=== PATIENT | male | born 1985 | race Caucasian/White ===

== ENCOUNTER 2016-11-01 21:02 | Emergency (ER) | payer OTHER ==
--- NOTE | 2016-11-01 22:41 | ED NURSING NOTES ---
Clinical Report - Nurses [facility] [place] [address] 11/01/2016 21:02 Patient: BELGICA PORTILLO TRIAGE Triage time 21:18. Acuity: LEVEL 4. Chief Complaint: INJURY TO RIGHT FOOT. 21:24. Alert. SEPSIS SCREEN: Sepsis Screen. Negative (no infection suspected/documented). GAIL COMA SCORE: [place] Coma Scale: 15- eyes open spontaneously (4); best verbal response- oriented x 4 (5); best motor response- obeys commands (6). --21:24 Richard Alvarez R.N. 21:18 11/01/16. BP: 123/74. HR: 60. RR: 15. O2 saturation: 100%. Temp: 98.2 F (oral). Pain level now: 04/21. --21:24 Richard Alvarez R.N. Weight: 61.2 kg stated. Height/Length: 68 inches Per Patient. BMI: 20.5. --21:22 Richard Alvarez R.N. Medications Marnail for chronic nausea as needed. --21:24 Richard Alvarez R.N. The following entry was struck by Richard Alvarez R.N., 21:24 (11/01/16) Reason - other. <<STRICKEN ENTRY-- None. --21:20 Richard Alvarez R.N. --END STRIKE>>. Medication/allergy information source: the patient. --21:24 Richard Alvarez R.N. Allergies Morphine and Related. Penicillins. --21:21 Richard Alvarez R.N. History Arrived by private vehicle. Historian: patient. Accompanied by family. Primary physician (Graeme). This occurred (45 minutes ago). Occurred at home. Mechanism of injury: (Kicked a cabinet). ( Patient reports cooking in kitchen and accidently kicked a cabinet corner). Treatment CITY EDITOR: None. PAST MEDICAL HX: Tetanus status: more than 5 years ago. Immunizations: up-to-date. SOCIAL HX: Former smoker, end date 2013. Never smoker. History of weekly drug use: marijuana. No alcohol use. No infectious disease exposure. ABUSE ASSESSMENT: No report of abuse. FALL RISK ASSESSMENT: Fall risk assessment completed. No fall risk identified. NUTRITIONAL RISK ASSESSMENT: The nutritional risk assessment revealed no deficiencies. FUNCTIONAL ASSESSMENT: Functional assessment: no impairments noted. LEARNING NEEDS ASSESSMENT: The learning needs assessment revealed no barriers. SKIN INTEGRITY ASSESSMENT: Skin integrity risk assessment completed. No skin integrity risk identified. --21:24 Richard Alvarez R.N. PROBLEMS: Seizure Disorder. Irritable Bowel Syndrome. --21:22 Richard Alvarez R.N. ADDITIONAL SURGERIES: R tibial repair dislocated L hip during [facility]. --21:22 Richard Alvarez R.N. Interventions ID band on patient. To treatment room. --21:24 Richard Alvarez R.N. PHYSICAL ASSESSMENT 21:25. To room via wheelchair. GENERAL / NEURO / PSYCH: Oriented X 4. Alert. EXTREMITIES: Neuro-vascular status intact to the extremity. Right dorsal foot: swelling and superficial 1.0 cm laceration with controlled bleeding. SKIN: Skin intact. Skin is warm and dry. --21:25 Richard Alvarez R.N. NURSING PROGRESS NOTES 21:26. Two patient identifiers checked. Call light placed in reach. Bed placed in lowest position. Brakes of bed on. Patient ready for evaluation- chart flagged. --21:26 Richard Alvarez R.N. 21:42 11/01/2016 Toradol (Ketorolac Tromethamine) IM 60 mg given. Given in the right ventral gluteus. Allergies verified and confirmed 5 rights. --21:45 Richard Alvarez R.N. 21:44 11/01/2016 TDAP IM 0.5 mL given. (Lot#: [id number], expiration date: 06/19/2018, Grounds Maintenance Worker: sanofi pasteur). Given in the right deltoid. Allergies verified and confirmed 5 rights. Vaccine information statement provided to the patient. --21:46 Richard Alvarez R.N. 21:46. Patient transported to radiology by wheelchair with tech. --21:46 Richard Alvarez R.N. 21:52. Patient returned from radiology by wheelchair with tech. --21:54 Richard Alvarez R.N. Wound cleansed with sterile water. Applied sterile pressure dressing consisting of Band-Aid, following the application of antibiotic ointment. Secured with kerlix. --22:54 Darrick Rodney R.N. Reassurance given. Call light placed in reach. --22:55 Darrick Rodney R.N. 22:54 11/01/16. BP: 115/77. HR: 61. RR: 16. O2 saturation: 100%. Temp: 98.2 F. Pain level now: 0/10. --22:55 Darrick Rodney R.N. DISPOSITION / DISCHARGE Condition at departure: improved. The goals identified in the patient's plan of care were met. No learning barriers present. Reviewed medication(s) side effects, precautions, dosing and course information. Prescription(s) given to the patient. Reviewed wound care instructions. Patient verbalized understanding. Written instructions provided in Danish. The patient was discharged home and accompanied by spouse. He left the Emergency Department ambulatory and via private vehicle. Spouse driving. FALL RISK ASSESSMENT: Fall risk assessment completed. No fall risk identified. --:56 Darrick Rodney R.N. Departure time: 2256 PM. --22:56 Darrick Rodney R.N. Locked/Released at 11/02/2016 23:52 by Richard Alvarez R.N.
--- NOTE | 2016-11-01 22:41 | ED CLINICAL REPORT ---
Clinical Report - Physicians/Mid Levels [facility] [address] [place] [address] 11/01/2016 21:02 Patient: BELGICA PORTILLO Time Seen: 21:15; initial patient contact, initial documentation, patient care assumed. Arrived- By private vehicle. Historian- patient and spouse. HISTORY OF PRESENT ILLNESS Chief Complaint: Injury to the right foot. The injury happened just prior to arrival. The patient sustained a moderate direct blow- kicked furniture. Occurred at home. ( had socks on, no shoes). Patient is experiencing moderate pain. Patient denies injury to the head or neck. No other injury. REVIEW OF SYSTEMS The patient sustained a laceration. He complains of pain on weight bearing. He has had swelling. No tingling, weakness or numbness. All systems otherwise negative, except as recorded above. PAST HISTORY See nurses notes. PROBLEMS: Seizure Disorder. Irritable Bowel Syndrome. --21:22 Richard Alvarez R.N. ADDITIONAL SURGERIES: R tibial repair dislocated L hip during [facility]. --21:22 Richard Alvarez R.N. Last tetanus immunization was more than 5 years ago. SOCIAL HISTORY Former smoker. History of weekly drug use: marijuana. No alcohol use. No recent travel. Is a local resident. FAMILY HISTORY No significant family medical history. ADDITIONAL NOTES The nursing notes have been reviewed with agreement regarding the chief complaint, HPI, ROS, PMH and patient medications and allergies. PHYSICAL EXAM Vital Signs: 11/01/2016 21:18 BP: 123/74. HR: 60. RR: 15. O2 saturation: 100%. Temp: 98.2 F. Pain level now: 8/10. Have been reviewed as normal and appear to be correct. Appearance: Alert. Oriented X3. No acute distress. Head: Head atraumatic. Eyes: Pupils equal, round and reactive to light. Eyes normal inspection. Respiratory: No respiratory distress. Skin: Skin intact. Skin warm and dry. Extremities: Foot injury present. Right dorsal foot: mild tenderness and swelling and superficial 1.0 cm laceration of the middle and central aspect of the dorsal foot. Limited movement secondary to pain (diminished plantar flexion, dorsiflexion, inversion and eversion). Neurovascular intact distally. (superficial lac with mild bleeding, no closure needed). No ligamentous laxity present. No erythema, abrasion, ecchymosis, puncture wound or foreign body. No deformity. No ankle injury. Foot and ankle exam otherwise negative. Extremities otherwise negative. Gait: Abnormal gait. Gait not tested due to pain. Neuro, Vascular and Tendons: Vascular status intact. Sensation intact. Motor intact. Tendon function intact. Neuro: Oriented X 3. No motor deficit. No sensory deficit. Note: isolated injury to foot. LABS, X-RAYS, AND EKG X-Rays: X-rays are normal and reveal no acute disease (and reviewed by dr ponce). Right foot negative. The X-rays were independently viewed by me. PROGRESS AND PROCEDURES Patient counseled in person regarding the patient's stable condition, test results and diagnosis. 22:41. Differential Diagnosis: Other possible considerations: foot lac, contusion, fx, fb. Above considerations are based on history and physical exam. Differential diagnosis was discussed with patient. Disposition: Discharged home in good and improved condition (22:41). Condition: good and stable. CLINICAL IMPRESSION Single superficial laceration to the right foot.Treatment of laceration not delayed. No infection, foreign body present or right toenail injury. Single hematoma to the right foot. INSTRUCTIONS Protect wound and keep wound area clean. Change dressing twice daily. Soak in warm soapy water twice daily. Apply bacitracin twice daily. Do not work today. Warnings: TETANUS: You were given a tetanus shot during your visit. Make a note for future reference. GENERAL WARNINGS: Return or contact your physician immediately if your condition worsens or changes unexpectedly, if not improving as expected, or if other problems arise. Specifically return if problem worsens. Prescription Medications: [place] 5 mg / 325 mg tablets: take 1 orally as needed for pain. Dispense five (5). No refill. Follow-up: Follow up with your doctor in about one week as needed. Call for an appointment. Summary of care provided to patient. Understanding of the discharge instructions verbalized by patient. (Electronically signed by Staci Villaseñor A.R.N.P. 11/03/2016 13:18)
--- NOTE | 2016-11-01 22:41 | ED NURSING NOTES ---
Clinical Report - Nurses [facility] [place] [address] 11/01/2016 21:02 Patient: BELGICA PORTILLO TRIAGE Triage time 21:18. Acuity: LEVEL 4. Chief Complaint: INJURY TO RIGHT FOOT. 21:24. Alert. SEPSIS SCREEN: Sepsis Screen. Negative (no infection suspected/documented). GAIL COMA SCORE: [place] Coma Scale: 15- eyes open spontaneously (4); best verbal response- oriented x 4 (5); best motor response- obeys commands (6). --21:24 Richard Alvarez R.N. 21:18 11/01/16. BP: 123/74. HR: 60. RR: 15. O2 saturation: 100%. Temp: 98.2 F (oral). Pain level now: 04/21. --21:24 Richard Alvarez R.N. Weight: 61.2 kg stated. Height/Length: 68 inches Per Patient. BMI: 20.5. --21:22 Richard Alvarez R.N. Medications Marnail for chronic nausea as needed. --21:24 Richard Alvarez R.N. The following entry was struck by Richard Alvarez R.N., 21:24 (11/01/16) Reason - other. <<STRICKEN ENTRY-- None. --21:20 Richard Alvarez R.N. --END STRIKE>>. Medication/allergy information source: the patient. --21:24 Richard Alvarez R.N. Allergies Morphine and Related. Penicillins. --21:21 Richard Alvarez R.N. History Arrived by private vehicle. Historian: patient. Accompanied by family. Primary physician (Graeme). This occurred (45 minutes ago). Occurred at home. Mechanism of injury: (Kicked a cabinet). ( Patient reports cooking in kitchen and accidently kicked a cabinet corner). Treatment BUSINESS SERVICES OFFICER: None. PAST MEDICAL HX: Tetanus status: more than 5 years ago. Immunizations: up-to-date. SOCIAL HX: Former smoker, end date 2013. Never smoker. History of weekly drug use: marijuana. No alcohol use. No infectious disease exposure. ABUSE ASSESSMENT: No report of abuse. FALL RISK ASSESSMENT: Fall risk assessment completed. No fall risk identified. NUTRITIONAL RISK ASSESSMENT: The nutritional risk assessment revealed no deficiencies. FUNCTIONAL ASSESSMENT: Functional assessment: no impairments noted. LEARNING NEEDS ASSESSMENT: The learning needs assessment revealed no barriers. SKIN INTEGRITY ASSESSMENT: Skin integrity risk assessment completed. No skin integrity risk identified. --21:24 Richard Alvarez R.N. PROBLEMS: Seizure Disorder. Irritable Bowel Syndrome. --21:22 Richard Alvarez R.N. ADDITIONAL SURGERIES: R tibial repair dislocated L hip during [facility]. --21:22 Richard Alvarez R.N. Interventions ID band on patient. To treatment room. --21:24 Richard Alvarez R.N. PHYSICAL ASSESSMENT 21:25. To room via wheelchair. GENERAL / NEURO / PSYCH: Oriented X 4. Alert. EXTREMITIES: Neuro-vascular status intact to the extremity. Right dorsal foot: swelling and superficial 1.0 cm laceration with controlled bleeding. SKIN: Skin intact. Skin is warm and dry. --21:25 Richard Alvarez R.N. NURSING PROGRESS NOTES 21:26. Two patient identifiers checked. Call light placed in reach. Bed placed in lowest position. Brakes of bed on. Patient ready for evaluation- chart flagged. --21:26 Richard Alvarez R.N. 21:42 11/01/2016 Toradol (Ketorolac Tromethamine) IM 60 mg given. Given in the right ventral gluteus. Allergies verified and confirmed 5 rights. --21:45 Richard Alvarez R.N. 21:44 11/01/2016 TDAP IM 0.5 mL given. (Lot#: [id number], expiration date: 06/19/2018, Payroll Assistant: sanofi pasteur). Given in the right deltoid. Allergies verified and confirmed 5 rights. Vaccine information statement provided to the patient. --21:46 Richard Alvarez R.N. 21:46. Patient transported to radiology by wheelchair with tech. --21:46 Richard Alvarez R.N. 21:52. Patient returned from radiology by wheelchair with tech. --21:54 Richard Alvarez R.N. Wound cleansed with sterile water. Applied sterile pressure dressing consisting of Band-Aid, following the application of antibiotic ointment. Secured with kerlix. --22:54 Darrick Rodney R.N. Reassurance given. Call light placed in reach. --22:55 Darrikc Rodney R.N. 22:54 11/01/16. BP: 115/77. HR: 61. RR: 16. O2 saturation: 100%. Temp: 98.2 F. Pain level now: 0/10. --22:55 Darrick Rodney R.N. DISPOSITION / DISCHARGE Condition at departure: improved. The goals identified in the patient's plan of care were met. No learning barriers present. Reviewed medication(s) side effects, precautions, dosing and course information. Prescription(s) given to the patient. Reviewed wound care instructions. Patient verbalized understanding. Written instructions provided in [place]. The patient was discharged home and accompanied by spouse. He left the Emergency Department ambulatory and via private vehicle. Spouse driving. FALL RISK ASSESSMENT: Fall risk assessment completed. No fall risk identified. --:56 Darrick Rodney R.N. Departure time: 2256 PM. --22:56 Darrick Rodney R.N. Locked/Released at 11/02/2016 23:52 by Richard Alvarez R.N.
--- NOTE | 2016-11-01 22:41 | ED CLINICAL REPORT ---
Clinical Report - Physicians/Mid Levels [facility] [address] [place] [address] 11/01/2016 21:02 Patient: BELGICA PORTILLO Time Seen: 21:15; initial patient contact, initial documentation, patient care assumed. Arrived- By private vehicle. Historian- patient and spouse. HISTORY OF PRESENT ILLNESS Chief Complaint: Injury to the right foot. The injury happened just prior to arrival. The patient sustained a moderate direct blow- kicked furniture. Occurred at home. ( had socks on, no shoes). Patient is experiencing moderate pain. Patient denies injury to the head or neck. No other injury. REVIEW OF SYSTEMS The patient sustained a laceration. He complains of pain on weight bearing. He has had swelling. No tingling, weakness or numbness. All systems otherwise negative, except as recorded above. PAST HISTORY See nurses notes. PROBLEMS: Seizure Disorder. Irritable Bowel Syndrome. --21:22 Richard Alvarez R.N. ADDITIONAL SURGERIES: R tibial repair dislocated L hip during [facility]. --21:22 Richard Alvarez R.N. Last tetanus immunization was more than 5 years ago. SOCIAL HISTORY Former smoker. History of weekly drug use: marijuana. No alcohol use. No recent travel. Is a local resident. FAMILY HISTORY No significant family medical history. ADDITIONAL NOTES The nursing notes have been reviewed with agreement regarding the chief complaint, HPI, ROS, PMH and patient medications and allergies. PHYSICAL EXAM Vital Signs: 11/01/2016 21:18 BP: 123/74. HR: 60. RR: 15. O2 saturation: 100%. Temp: 98.2 F. Pain level now: 8/10. Have been reviewed as normal and appear to be correct. Appearance: Alert. Oriented X3. No acute distress. Head: Head atraumatic. Eyes: Pupils equal, round and reactive to light. Eyes normal inspection. Respiratory: No respiratory distress. Skin: Skin intact. Skin warm and dry. Extremities: Foot injury present. Right dorsal foot: mild tenderness and swelling and superficial 1.0 cm laceration of the middle and central aspect of the dorsal foot. Limited movement secondary to pain (diminished plantar flexion, dorsiflexion, inversion and eversion). Neurovascular intact distally. (superficial lac with mild bleeding, no closure needed). No ligamentous laxity present. No erythema, abrasion, ecchymosis, puncture wound or foreign body. No deformity. No ankle injury. Foot and ankle exam otherwise negative. Extremities otherwise negative. Gait: Abnormal gait. Gait not tested due to pain. Neuro, Vascular and Tendons: Vascular status intact. Sensation intact. Motor intact. Tendon function intact. Neuro: Oriented X 3. No motor deficit. No sensory deficit. Note: isolated injury to foot. LABS, X-RAYS, AND EKG X-Rays: X-rays are normal and reveal no acute disease (and reviewed by dr ponce). Right foot negative. The X-rays were independently viewed by me. PROGRESS AND PROCEDURES Patient counseled in person regarding the patient's stable condition, test results and diagnosis. 22:41. Differential Diagnosis: Other possible considerations: foot lac, contusion, fx, fb. Above considerations are based on history and physical exam. Differential diagnosis was discussed with patient. Disposition: Discharged home in good and improved condition (22:41). Condition: good and stable. CLINICAL IMPRESSION Single superficial laceration to the right foot.Treatment of laceration not delayed. No infection, foreign body present or right toenail injury. Single hematoma to the right foot. INSTRUCTIONS Protect wound and keep wound area clean. Change dressing twice daily. Soak in warm soapy water twice daily. Apply bacitracin twice daily. Do not work today. Warnings: TETANUS: You were given a tetanus shot during your visit. Make a note for future reference. GENERAL WARNINGS: Return or contact your physician immediately if your condition worsens or changes unexpectedly, if not improving as expected, or if other problems arise. Specifically return if problem worsens. Prescription Medications: [place] 5 mg / 325 mg tablets: take 1 orally as needed for pain. Dispense five (5). No refill. Follow-up: Follow up with your doctor in about one week as needed. Call for an appointment. Summary of care provided to patient. Understanding of the discharge instructions verbalized by patient. (Electronically signed by Staci Villaseñor A.R.N.P. 11/03/2016 13:18)
--- NOTE | 2016-11-01 22:41 | ED ORDER SUMMARY ---
..... Patient: BELGICA PORTILLO OrderSheet [facility] VisitID: [id number] [place] [address] 31y, M Registration Date/Time: 11/01/2016 ORDER SHEET Weight: 61.2 kg (stated) Allergies: Morphine and Related, Penicillins GENERAL ORDERS: Foot 3V Right Urgent (21:35 11/01/2016 HBivens A.R.N.P.) (Ack 21:39 LMuller) (21:55 MCampbell) Dress Wounds (22:42 11/01/2016 HBivens A.R.N.P.) (22:53 HOShaughradhay R.N.) MEDICATION ORDERS: Toradol IM 60 mg (NOW) (21:35 11/01/2016 HBivens A.R.N.P.) (Ack 21:37 JQuivey R.N.) (21:45 JQuivey R.N.) Tdap IM 0.5 mL (NOW, per protocol) (21:35 11/01/2016 HBivens A.R.N.P.) (Ack 21:37 JQuivey R.N.) (21:46 JQuivey R.N.) IV FLUIDS: ORDER SHEET NOTES: [Electronically signed by Richard Alvarez R.N. (23:51 11/02/2016)] [Electronically signed by Staci Villaseñor A.R.N.P. (13:18 11/03/2016)] [Electronically locked/signed by Richard Alvarez R.N. (23:51 11/02/2016)]
--- NOTE | 2016-11-01 22:41 | ED ORDER SUMMARY ---
..... Patient: BELGICA PORTILLO OrderSheet [facility] VisitID: [id number] [place] [address] 31y, M Registration Date/Time: 11/01/2016 ORDER SHEET Weight: 61.2 kg (stated) Allergies: Morphine and Related, Penicillins GENERAL ORDERS: Foot 3V Right Urgent (21:35 11/01/2016 HBivens A.R.N.P.) (Ack 21:39 LMuller) (21:55 MCampbell) Dress Wounds (22:42 11/01/2016 HBivens A.R.N.P.) (22:53 HOShaughradhay R.N.) MEDICATION ORDERS: Toradol IM 60 mg (NOW) (21:35 11/01/2016 HBivens A.R.N.P.) (Ack 21:37 JQuivey R.N.) (21:45 JQuivey R.N.) Tdap IM 0.5 mL (NOW, per protocol) (21:35 11/01/2016 HBivens A.R.N.P.) (Ack 21:37 JQuivey R.N.) (21:46 JQuivey R.N.) IV FLUIDS: ORDER SHEET NOTES: [Electronically signed by Richard Alvarez R.N. (23:51 11/02/2016)] [Electronically signed by Staci Villaseñor A.R.N.P. (13:18 11/03/2016)] [Electronically locked/signed by Richard Alvarez R.N. (23:51 11/02/2016)]
--- NOTE | 2016-11-01 22:52 | DIAGNOSTIC IMAGING REPORT ---
PROCEDURE: XR FOOT 3 VIEWS - RIGHT INDICATION: TRAUMA/INJURY TECHNIQUE: Three views of the right foot. COMPARISON: None. FINDINGS: Normal mineralization. No fractures. Incidental note made of surgical changes of lateral distal fibular compression plate and multiple screws including the syndesmotic screw which appears fractured. Mild degenerative change in the posterior tibiotalar joint. Normal osseous alignment. No suspicious soft-tissue calcification or radiodense foreign bodies. Mild soft tissue swelling over the dorsum of the midfoot. IMPRESSION: 1. No acute fracture. 2. Mild soft tissue swelling over the dorsum of the midfoot. 3. Remote ankle fracture status post fixation.
--- NOTE | 2016-11-03 13:19 | ED MAR SUMMARY ---
..... Medication Administration Record [facility] [address] [place] [address] Patient: BELGICA PORTILLO Visit ID: [id number] 31y, M Weight: 61.2 kg Height/Length: 68 in BMI: 20.5 ALLERGIES: Penicillins, Morphine and Related Given 21:42 11/01/2016 Richard Alvarez, R.N. Medication Administered: TORADOL [IM] (KETOROLAC TROMETHAMINE), Dose: 60 mg IM. Medication Ordered: Toradol IM 60 mg (NOW). Given 21:44 11/01/2016 Richard Alvarez, R.N. Medication Administered: TDAP [IM], Dose: 0.5 mL IM. Medication Ordered: Tdap IM 0.5 mL (NOW, per protocol).
--- NOTE | 2016-11-03 13:19 | ED DISCHARGE INSTRUCTIONS ---
Patient: BELGICA PORTILLO General Instructions [facility] VisitID: [id number] [address] [place] [address] 31y, M Registration Date/Time: 11/01/2016 Single superficial laceration to the right foot.Treatment of laceration not delayed. No infection, foreign body present or right toenail injury. Single hematoma to the right foot. INSTRUCTIONS Protect wound and keep wound area clean. Change dressing twice daily. Soak in warm soapy water twice daily. Apply bacitracin twice daily. Do not work today. Warnings: TETANUS: You were given a tetanus shot during your visit. Make a note for future reference. GENERAL WARNINGS: Return or contact your physician immediately if your condition worsens or changes unexpectedly, if not improving as expected, or if other problems arise. Specifically return if problem worsens. Prescription Medications: Nathalie 5 mg / 325 mg tablets: take 1 orally as needed for pain. Dispense five (5). No refill. Follow-up: Follow up with your doctor in about one week as needed. Call for an appointment. Summary of care provided to patient. Understanding of the discharge instructions verbalized by patient. ADDITIONAL INFORMATION Laceration, Extremity (Sutures, [place], Or Tape) A laceration is a cut through the skin. This will usually require stitches (sutures) or nan if it is deep. Minor cuts may be treated with surgical tape closures. Home care The following guidelines will help you care for your laceration at home: Keep the wound clean and dry. If a bandage was applied and it becomes wet or dirty, replace it. Otherwise, leave it in place for the first 24 hours, then change it once a day or as directed. If stitches or nan were used, clean the wound daily: After removing the bandage, wash the area with soap and water. Use a wet cotton swab to loosen and remove any blood or crust that forms. After cleaning, keep the wound clean and dry. Talk with your doctor before applying any antibiotic ointment to the wound. Reapply the bandage. You may remove the bandage to shower as usual after the first 24 hours, but do not soak the area in water (no swimming) until the stitches or nan are removed. If surgical tape closures were used, keep the area clean and dry. If it becomes wet, blot it dry with a towel. The doctor may prescribe an antibiotic cream or ointment to prevent infection. Do not stop taking this medication until you have finished the prescribed course or the doctor tells you to stop. The doctor may also prescribe medications for pain. Follow the doctors instructions for taking these medications. If you have chronic liver or kidney disease or ever had a stomach ulcer or GI bleeding, talk with your doctor before using these medicines. Follow-up care Follow up with your health care provider. Most skin wounds heal within ten days. However, an infection may sometimes occur despite proper treatment. Therefore, check the wound daily for the signs of infection listed below. Stitches and nan should be removed within 714 days. If surgical tape closures were used, you may remove them after 10 days, if they have not fallen off by then. Notify your doctor if you notice persistent numbness or weakness in the injured extremity. (Note:A radiologist will review any X-rays that were taken. We will notify you of any new findings that may affect your care.) When to seek medical care Get prompt medical attention if any of these occur: Increasing pain in the wound Redness, swelling, or pus coming from the wound Fever of 100.4F (38C) or higher, or as directed by your health care provider If stitches or nan come apart or fall out before your next appointment If the surgical tape closures fall off within seven days, or the wound edges re-open Bleeding not controlled by direct pressure Hematoma A hematoma is caused by an injury with damage to small blood vessels. This causes blood to leak into the tissues. Blood forms a pocket under the skin that swells and looks like a purplish patch. Gradually the blood in the hematoma is absorbed back into the body. The swelling and pain of the hematoma will go away. This takes from one to four weeks, depending on the size of the hematoma. The skin over the hematoma may turn bluish then brown and yellow as the blood is dissolved and absorbed. Home Care: Limit motion of the joints near the hematoma. If the hematoma is large and painful, you should avoid sports and other vigorous physical activity until the swelling and pain goes away. Apply an ice pack (ice cubes in a plastic bag, wrapped in a towel) over the injured area for 20 minutes every 1-2 hours the first day. You should continue with ice packs 3-4 times a day for the next two days. Continue the use of ice packs for relief of pain and swelling as needed. You may use acetaminophen (Tylenol) or ibuprofen (Motrin, Advil) to control pain, unless another pain medicine was prescribed. [ NOTE : If you have chronic liver or kidney disease or ever had a stomach ulcer or GI bleeding, talk with your doctor before using these medicines.] Follow Up with your doctor or as advised by our staff. [ NOTE: A radiologist will review any X-rays that were taken. We will notify you of any new findings that may affect your care.] Get Prompt Medical Attention if any of the following occur: Redness around the hematoma Increase in pain or warmth in the hematoma Increase in size of the hematoma Fever of 100.4F (38C) or higher, or as directed by your healthcare provider If the hematoma is on the arm or leg, watch for: Increased swelling or pain in the extremity Numbness or tingling or blue color of the hand or foot Contusion,Soft Tissue You have a CONTUSION, which is a bruise with swelling and some bleeding under the skin. There are no broken bones. This injury takes a few days to a few weeks to heal. Home Care: 1) Keep the injured part elevated to reduce pain and swelling. This is especially important during the first 48 hours. 2) Make an ice pack (ice cubes in a plastic bag, wrapped in a towel) and apply for 20 minutes every 1-2 hours the first day. Continue this 3-4 times a day until the pain and swelling goes away. 3) You may use acetaminophen (Tylenol) or ibuprofen (Motrin, Advil) to control pain, unless another pain medicine was prescribed. [ NOTE : If you have chronic liver or kidney disease or ever had a stomach ulcer or GI bleeding, talk with your doctor before using these medicines.] Follow Up with your doctor or this facility if you are not improving within the next THREE days. [NOTE: If X-rays were taken, they will be reviewed by a radiologist. You will be notified of any new findings that may affect your care.] Get Prompt Medical Attention if any of the following occur: -- Pain or swelling increases -- Injured arm or leg becomes cold, blue, numb or tingly -- Redness, warmth or drainage from the skin Diphtheria Toxoid Adsorbed, Pertussis Vaccine, Acellular (Adsorbed), Tetanus Toxoid, Adsorbed Suspension for injection What is this medicine? DIPHTHERIA and TETANUS TOXOIDS; PERTUSSIS VACCINE (dif THEER ee uh and TET n us TOK soids; per TUS iss vak SEEN) is used to prevent diphtheria, tetanus, and pertussis infections. How should I use this medicine? This vaccine is for injection into a muscle. It is given by a health anesthesiologist and critical care. A copy of Vaccine Information Statements will be given before each vaccination. Read this sheet carefully each time. The sheet may change frequently. Talk to your director of workforce development regarding the use of this vaccine in children. While the DTP vaccine may be given to children ages 6 weeks to 7 years and the Tdap vaccine may be given to children at least 10 years old, precautions do apply. What side effects may I notice from receiving this medicine? Side effects that you should report to your doctor or health anesthesiologist and critical care as soon as possible: allergic reactions like skin rash, itching or hives, swelling of the face, lips, or tongue breathing problems fever of 103 degrees F or more flu-like symptoms inconsolable crying infection pain, tingling, numbness in the hands or feet seizures swelling of arm or leg that was injected unusually weak or tired Side effects that usually do not require immediate medical attention (report these side effects to your doctor or health anesthesiologist and critical care if they continue or are bothersome): fussy, irritable loss of appetite fever of 102 degrees F or less pain, tenderness, redness, swelling, or a 'knot' at site where injected vomiting What may interact with this medicine? immune globulin medicines that suppress your immune function like adalimumab, anakinra, infliximab medicines to treat cancer medicines that treat or prevent blood clots like warfarin, enoxaparin, and dalteparin steroid medicines like prednisone or cortisone What if I miss a dose? It is important not to miss your dose. Call your doctor or health anesthesiologist and critical care if you are unable to keep an appointment. Where should I keep my medicine? This drug is given in a hospital or clinic and will not be stored at home. What should I tell my health care provider before I take this medicine? They need to know if you have any of these conditions: blood disorders like hemophilia fever or infection immune system problems neurologic disease seizures an unusual or allergic reaction to vaccines, thimerosal, latex, other medicines, foods, dyes, or preservatives or trying to get breast-feeding What should I watch for while using this medicine? See your health care provider for all shots of this vaccine as directed. To have protection from infection, you must have 3 shots of this vaccine plus boosters as needed. Tell your doctor right away if you have any serious or unusual side effects after getting this vaccine. Hydrocodone Bitartrate, Acetaminophen Oral tablet What is this medicine? ACETAMINOPHEN; HYDROCODONE (a set a JOSE alyssa fen; gilda droe KOE done) is a pain reliever. It is used to treat mild to moderate pain. How should I use this medicine? Take this medicine by mouth. Swallow it with a full glass of water. Follow the directions on the prescription label. If the medicine upsets your stomach, take the medicine with food or milk. Do not take more than you are told to take. Talk to your director of workforce development regarding the use of this medicine in children. This medicine is not approved for use in children. What side effects may I notice from receiving this medicine? Side effects that you should report to your doctor or health anesthesiologist and critical care as soon as possible: allergic reactions like skin rash, itching or hives, swelling of the face, lips, or tongue breathing problems confusion feeling faint or lightheaded, falls stomach pain yellowing of the eyes or skin Side effects that usually do not require medical attention (report to your doctor or health anesthesiologist and critical care if they continue or are bothersome): nausea, vomiting stomach upset What may interact with this medicine? alcohol antihistamines isoniazid medicines for depression, anxiety, or psychotic disturbances medicines for sleep muscle relaxants naltrexone narcotic medicines (opiates) for pain phenobarbital ritonavir tramadol What if I miss a dose? If you miss a dose, take it as soon as you can. If it is almost time for your next dose, take only that dose. Do not take double or extra doses. Where should I keep my medicine? Keep out of the reach of children. This medicine can be abused. Keep your medicine in a safe place to protect it from theft. Do not share this medicine with anyone. Selling or giving away this medicine is dangerous and against the law. Store at room temperature between 15 and 30 degrees C (59 and 86 degrees F). Protect from light. Keep container tightly closed. Throw away any unused medicine after the expiration date. Discard unused medicine and used packaging carefully. Pets and children can be harmed if they find used or lost packages. What should I tell my health care provider before I take this medicine? They need to know if you have any of these conditions: brain tumor Crohn's disease, inflammatory bowel disease, or ulcerative colitis drink more than 3 alcohol-containing drinks per day drug abuse or addiction head injury heart or circulation problems kidney disease or problems going to the bathroom liver disease lung disease, asthma, or breathing problems an unusual or allergic reaction to acetaminophen, hydrocodone, other opioid analgesics, other medicines, foods, dyes, or preservatives or trying to get breast-feeding What should I watch for while using this medicine? Tell your doctor or health anesthesiologist and critical care if your pain does not go away, if it gets worse, or if you have new or a different type of pain. You may develop tolerance to the medicine. Tolerance means that you will need a higher dose of the medicine for pain relief. Tolerance is normal and is expected if you take the medicine for a long time. Do not suddenly stop taking your medicine because you may develop a severe reaction. Your body becomes used to the medicine. This does NOT mean you are addicted. Addiction is a behavior related to getting and using a drug for a non-medical reason. If you have pain, you have a medical reason to take pain medicine. Your doctor will tell you how much medicine to take. If your doctor wants you to stop the medicine, the dose will be slowly lowered over time to avoid any side effects. You may get drowsy or dizzy when you first start taking the medicine or change doses. Do not drive, use machinery, or do anything that may be dangerous until you know how the medicine affects you. Stand or sit up slowly. There are different types of narcotic medicines (opiates) for pain. If you take more than one type at the same time, you may have more side effects. Give your health care provider a list of all medicines you use. Your doctor will tell you how much medicine to take. Do not take more medicine than directed. Call emergency for help if you have problems breathing. The medicine will cause constipation. Try to have a bowel movement at least every 2 to 3 days. If you do not have a bowel movement for 3 days, call your doctor or health anesthesiologist and critical care. Too much acetaminophen can be very dangerous. Do not take Tylenol (acetaminophen) or medicines that contain acetaminophen with this medicine. Many non-prescription medicines contain acetaminophen. Always read the labels carefully. You have been given the following additional information: Laceration, Extrem (Suture, Staple, Or Tape) Hematoma Contusion, Soft Tissue Diphtheria Toxoid Adsorbed, Pertussis Vaccine, Acellular (Adsorbed), Tetanus Toxoid, Adsorbed Suspension for injection Hydrocodone Bitartrate, Acetaminophen Oral tablet Do not work today. (Electronically signed by Staci Villaseñor A.R.N.P. 11/03/2016 13:18)
--- NOTE | 2016-11-03 13:19 | ED MED RECONCILIATION SUMMARY ---
Patient: BELGICA PORTILLO Medication Reconciliation Report [facility] VisitID: [id number] [address] [place] [address] 31y, M Registration Date/Time: 11/01/2016 Weight: 61.2 kg Height/Length: 68 in. BMI: 20.5 ALLERGIES: Morphine and Related, Penicillins The patient's Home Medications are listed below: THE FOLLOWING MEDICATIONS NEED TO BE RECONCILED: Marnail for chronic nausea as needed The source(s) of the original Home Medication information: patient The following Medications were given to the patient in the Emergency Department: Toradol [IM] IM 60 mg, administered: 11/01/2016 9:42:00 PM TDAP [IM] IM 0.5 mL, administered: 11/01/2016 9:44:00 PM The following Medications were prescribed to the patient: [place] 5 mg / 325 mg tablets: take 1 orally as needed for pain. Dispense five (5). No refill. -- Staci Villaseñor A.R.N.P.
--- NOTE | 2016-11-03 13:19 | ED MAR SUMMARY ---
..... Medication Administration Record [facility] [address] [place] [address] Patient: BELGICA PORTILLO Visit ID: [id number] 31y, M Weight: 61.2 kg Height/Length: 68 in BMI: 20.5 ALLERGIES: Penicillins, Morphine and Related Given 21:42 11/01/2016 Richard Alvarez, R.N. Medication Administered: TORADOL [IM] (KETOROLAC TROMETHAMINE), Dose: 60 mg IM. Medication Ordered: Toradol IM 60 mg (NOW). Given 21:44 11/01/2016 Richard Alvarez, R.N. Medication Administered: TDAP [IM], Dose: 0.5 mL IM. Medication Ordered: Tdap IM 0.5 mL (NOW, per protocol).
--- NOTE | 2016-11-03 13:19 | ED MED RECONCILIATION SUMMARY ---
Patient: BELGICA PORTILLO Medication Reconciliation Report [facility] VisitID: [id number] [address] [place] [address] 31y, M Registration Date/Time: 11/01/2016 Weight: 61.2 kg Height/Length: 68 in. BMI: 20.5 ALLERGIES: Morphine and Related, Penicillins The patient's Home Medications are listed below: THE FOLLOWING MEDICATIONS NEED TO BE RECONCILED: Marnail for chronic nausea as needed The source(s) of the original Home Medication information: patient The following Medications were given to the patient in the Emergency Department: Toradol [IM] IM 60 mg, administered: 11/01/2016 9:42:00 PM TDAP [IM] IM 0.5 mL, administered: 11/01/2016 9:44:00 PM The following Medications were prescribed to the patient: [place] 5 mg / 325 mg tablets: take 1 orally as needed for pain. Dispense five (5). No refill. -- Staci Villaseñor A.R.N.P.
== END 2016-11-01 22:56 | disposition home or self-care (01) ==
LOC: ED SRH 21:02
DX: S91.311A Laceration without foreign body, right foot, initial encounter (principal); S99.921A Unspecified injury of right foot, initial encounter; W22.09XA Striking against other stationary object, initial encounter; Y93.G1 Activity, food preparation and clean up; Y92.010 Kitchen of single-family (private) house as the place of occurrence of the external cause; Y99.9 Unspecified external cause status; Z87.891 Personal history of nicotine dependence; Z88.5 Allergy status to narcotic agent; Z88.0 Allergy status to penicillin